=== PATIENT | female | born 1990 | race African-American/Black ===

== ENCOUNTER 2016-06-27 15:48 | Emergency (ER) | payer MEDICAID ==
[~2016-06-27] VITALS: Ht 170.2 cm; Wt 125.6 kg
[~2016-06-27 15:48] MED LIST: HYDR-4246 PO; NO ROUTINE MEDS; ONDA4TAB4 PO
[2016-06-27 15:50] VITALS: Ht 170.2 cm; Wt 125.6 kg
--- NOTE | 2016-06-27 17:05 | NUR ---
ELIMINATION PT TO BR TO VOID. UA COLLECTED AT THIS TIME
[2016-06-27] MEDS ORDERED: ACET-62 PO (17:57)
[2016-06-27] MEDS ORDERED: HYDROCODONE/APAP 5 mg/325 mg TABLET PO ONE (18:00)
[2016-06-27 18:15] LABS: BASOPHILS % (AUTO) 0.3 % (0-2); EOSINOPHILS # (AUTO) 0.2 T/MM3 (0-0.5); EOSINOPHILS % (AUTO) 1.4 % (0-4); HCT - HEMATOCRIT 41.6 % (36-46); IMMATURE GRANULOCYTE # (AUTO) 0.04 T/MM3 (0.00-0.03); IMMATURE GRANULOCYTE % (AUTO) 0.3 % (0.0-0.5); LYMPHOCYTES # (AUTO) 3.3 T/MM3 (1-4.8); LYMPHOCYTES % (AUTO) 28.1 % (23-45); MEAN CORPUSCULAR HGB 30.5 UUG (26-34); MEAN CORPUSCULAR HGB CONC(MCHC 33.7 GM/DL (31-37); MEAN CORPUSCULAR VOLUME 90.6 UM3 (80-100); MEAN PLATELET VOLUME 10.2 UM3 (9.4-12.4); MONOCYTES # (AUTO) 0.5 T/MM3 (0-0.8); MONOCYTES % (AUTO) 4.4 % (0-9.0); NEUTROPHILS #(AUTO)-ABSOLUTE 7.8 T/MM3 (1.8-7.7); NEUTROPHILS % (AUTO) 65.5 % (33-66); RED BLOOD COUNT 4.59 M/MM3 (4.00-5.20); WBC - WHITE BLOOD COUNT 11.9 T/MM3 (4.5-11.0)
[2016-06-27 18:17] LABS: BLOOD, URINE 1+ (NEGATIVE); COLOR,URINE YELLOW (YELLOW); LEUKOCYTE ESTERASE ,URINE NEGATIVE (NEGATIVE); NITRITE,URINE NEGATIVE (NEGATIVE); UROBILINOGEN,URINE 0.2 EU/DL (NORMAL)
--- NOTE | 2016-06-27 18:21 | ERPDOC ---
Departure Disposition Decision Date: Jun 27, 2016 Disposition Decision Time: 20:09 Disposition: 01 DISCHARGED HOME, SELF-CARE Impression Impression Impression: Primary Impression: Right lower quadrant abdominal pain Additional Impression: Bacterial vaginosis Severity: Moderate Condition: Stable Seen By: Mid-level only Patient Instructions: Abdominal Pain (ED), Bacterial Vaginosis (ED) Problems/Meds/Labs Reviewed?: Yes Medications reviewed and manag: Yes Additional Instructions: Take the [place] as needed for pain at home. I do want you to follow up with Dr Bowser on Thursday for follow up. Take the Flagyl as prescribed as well. This will help with the discharge. If you have any other issues/concerns then return to ER. Follow up care ordered?: Yes Mental Status: Alert Scripts Hydrocodone/Acetaminophen ([place] 5-325 Tablet) 5-325 Tablet 1 TAB PO Q6H Y for PAIN, #15 TAB 0 Refills Prov: RICARDO GARNETT BEVELLER OPERATOR 06/27/16 Metronidazole (Flagyl) 500 Mg Tablet 500 MG PO Q12HR, #14 TAB 0 Refills Take 1 tablet, by mouth, every 12 hours. Prov: RICARDO GARNETT BEVELLER OPERATOR 06/27/16 HPI - Abdominal Pain General Chief Complaint: Female Urogenital Problems Stated Complaint: PELVIC PAIN Time Seen by Provider: 17:41 Source: patient History/Exam Limitations: no limitations HPI - Abdominal Pain Initial Comments She presents to Er today for RLQ abdominal pain that started this morning. She feels like she has had pain like this off and on for the last 2 years since she had her gallbladder out. She denies any fever/chills or diarrhea. Has had some mild nausea. Was evaluated in ER a few weeks ago for this same pain. Had labs and CT of abdomen that were normal and was advised to follow up with [facility]. She did see Dr Bowser who recommended that she return to the office when her pain returns and they would get a pelvic US. She did call her office today but was unable to get in to see her. Occurred At: home Onset: Gradual Duration: other (Over the last few years off and on) Quality: sharpness Location: RLQ Radiation: no radiation Activities at Onset: none Associated Symptoms: DENIES: back pain, chest pain, diaphoresis, fatigue, fever /chills, headache, heartburn, nausea/vomiting, rash, shortness of breath, swelling/mass in abdomen, syncope, weakness Hx of Similar Symptoms: No Allergies: Coded Allergies: No Known Drug Allergies (Verified Allergy, Unknown, 05/07/16) Past History Past Medical History GI: constipation Musculoskeletal: neck pain Surgical History General: gallbladder Reproductive/: Family History Family History: Negative Vaccines Hx Influenza Vaccination: No Hx Pneumococcal Vaccination: No Social History Smoking Status: Never smoker Substance Use Type: does not use Alcohol Intake: none Sexuality: male partner Review of Systems Constitutional Constitutional: DENIES: chills, dizziness, fatigue, fever, weakness Cardiovascular Cardiac: DENIES: chest pain Rhythm/Rate: DENIES: irregular beat, palpitations Pulmonary Respiratory: DENIES: cough, dyspnea, sputum GI Upper Abdomen: DENIES: nausea, pain, vomiting Lower Abdomen: pain (RLQ), DENIES: constipation, diarrhea General: DENIES: discharge, dysuria, frequency, urgency Integumentary Skin: DENIES: rash Neurological General: DENIES: headache, numbness, tingling, weakness Physical Exam General General Nourishment: well nourished, well developed, appears stated age, no acute distress, adult, obese General Body Habitus: well groomed Vitals and Pain First Documented Vital Signs Date Time Temp Pulse Resp B/P Pulse Ox O2 Delivery O2 Flow Rate FiO2 06/27/16 15:50 98.0 94 14 130/58 94 Room Air Weight: Kilograms: 125.600 Height (feet): 5 Height (inches): 7.00 Triage Pain Scale: RN VS reviewed by Provider: Yes Normal Exams: Neck: Full range of motion, without adenopathy, JVD, bruits or thyromegaly Chest/Resp: Clear all scott, with good airflow, and symmetry bilaterally CV: Regular rate and rhythm, without murmur or gallop, Pulses 2+ all extremities, capillary refill, <2 seconds all ext., no pedal edema noted Abdomen: Bowel sounds positive, non-distended, no hepatosplenomegaly, masses or bruits noted Lymphatic: No lymphadenopathy, or lymphedema noted Integumentary: No rashes, hives, or bruising noted Neurologic: Patient is alert, and oriented Psychiatric: Patient exhibits, appropriate attention, emotion and affect Abdomen Inspection: NOT FOUND: distention Palpation: FOUND: soft, tender (TTP in the RLQ mildly with mild guarding), NOT FOUND: involuntary guarding, voluntary guarding Auscultation: FOUND: normoactive (brief) Female Brief: FOUND: tenderness (TTP mildly in the midline over the uterus and over the right adnexa. no cervical motion tenderness noted. Cervix and external genitalia does appear normal and without lesions. ), NOT FOUND: bleeding, discharge, mass Differential Diagnoses Considering: Ectopic , Ovarian Cyst, Ovarian Torsion, PID/Endometritis , Tubovarian Abscess, UTI Progress Results/Orders Orders Procedure Category Date Status Time LAB 06/27/16 Complete Qualitative, Urine 17:56 Cbc W/Auto LAB 06/27/16 Complete Diff-Reflex Manual Cmp - Comprehensive LAB 06/27/16 Complete Metabolic Gc - Chlamydia Pcr LAB 06/27/16 Complete 17:56 Hydrocodone/Acetaminophen PHA 06/27/16 Complete ([place] 5/325) 18:00 UA, LAB 06/27/16 Complete Dip&Micro(Complete) & 17:04 Microscopic Exam (Wet JAGUAR 06/27/16 In Process Prep-[place] 19:42 Genital Culture JAGUAR 06/27/16 In Process W/Gram Stain 19:42 Metronidazole (Flagyl) PHA 06/27/16 Complete 20:15 Hydrocodone/Apap PHA 06/27/16 Complete 5/325 Prepack ([place] 5 20:15 Lab Results Laboratory Tests Test 06/27/16 17:04 06/27/16 18:09 Urine Collection Type Cleancatch-midstream Urine Color Yellow Urine Turbidity Sl cloudy Urine pH 6.0 Urine Specific [place] >=1.030 Urine Protein Negative Urine Glucose (UA) Negative Urine Ketones 1+ Urine Blood 1+ Urine Nitrite Negative Urine Bilirubin Negative Urine Urobilinogen 0.2EU/DL Urine Leukocyte Esterase Negative Urine RBC 0-1/HPF Urine WBC 0-1/HPF Urine Squamous Epithelial Cells 10-20 Urine Bacteria Trace Urine Mucus Present Urine Culture Indicated Cult not indicated Urine Test Negative Chlamydia trachomatis DNA (PCR) Negative N. gonorrhoeae DNA Specimen Source Urine Neisseria gonorrhoeae DNA (PCR) Negative White Blood Count 11.9T/MM3 Red Blood Count 4.59M/MM3 Hemoglobin 14.0GM/DL Hematocrit 41.6% Mean Corpuscular Volume 90.6UM3 Mean Corpuscular Hemoglobin 30.5UUG Mean Corpuscular Hemoglobin Concent 33.7GM/DL RDW Standard Deviation 42.1FL Platelet Count 282T/MM3 Mean Platelet Volume 10.2UM3 Immature Granulocyte % (Auto) 0.3% Neutrophils (%) (Auto) 65.5% Lymphocytes (%) (Auto) 28.1% Monocytes (%) (Auto) 4.4% Eosinophils (%) (Auto) 1.4% Basophils (%) (Auto) 0.3% Absolute Immature Granulocyte (auto 0.04T/MM3 Absolute Neutrophils (auto) 7.8T/MM3 Absolute Lymphocytes (auto) 3.3T/MM3 Absolute Monocytes (auto) 0.5T/MM3 Absolute Eosinophils (auto) 0.2T/MM3 Absolute Basophils (auto) 0.0T/MM3 Turbidity < 20 Sodium Level 144MEQ/L Potassium Level 3.7MEQ/L Chloride Level 109MEQ/L Carbon Dioxide Level 24MEQ/L Anion Gap 11MEQ/L Blood Urea Nitrogen 6.0MG/DL Creatinine 0.7MG/DL Glomerular Filtration Rate Calc 102 BUN/Creatinine Ratio 9RATIO Glucose Level 85MG/DL Calculated Osmolality 274MOSM/KG Calcium Level 9.4MG/DL Total Bilirubin 0.70MG/DL Icterus Index < 2 Aspartate Amino Transf (AST/SGOT) 27U/L Alanine Aminotransferase (ALT/SGPT) 30U/L Alkaline Phosphatase 92U/L Total Protein 7.4G/DL Albumin 3.9G/DL Globulin 3.5G/DL Albumin/Globulin Ratio 1.1RATIO Chemistry Specimen Hemolysis 31 Medications Current ED Medications Acetaminophen/ Hydrocodone Bitart ([place] 5/325) 1 tab O ONCE PO Last administered on 06/27/16 18:16; Start 06/27/16 at 18:00; Stop 06/27/16 at 18:01 ; Status DC Metronidazole (Flagyl) 500 mg O ONCE PO Last administered on 06/27/16 20:32; Start 06/27/16 at 20:15; Stop 06/27/16 at 20:16; Status DC Acetaminophen/ Hydrocodone Bitart ([place] 5 (PrePack)) 1 pack O ONCE SENT HOME Last administered on 06/27/16 20:32; Start 06/27/16 at 20:15; Stop 06/27/16 at 20:16; Status DC Progress Progress WBC mildly elevated but without left shift. CMP is normal. UA is clear. GC/ chlamydia today are normal as well. Wet mount does show >20% clue cells but negative for trich. Will go ahead and treat with Flagyl. Did talk with her that given that labs look good and she has had a recent CT that was negative, will let her go home and follow up with Dr Bowser for pelvic US and follow up. RICARDO GARNETT APRN Jun 27, 2016 18:21
[2016-06-27 18:25] LABS: WBC,URINE 0-1 /HPF (0-5)
[2016-06-27 18:26] LABS: BACTERIA,URINE TRACE (NEGATIVE); MUCUS,URINE PRESENT; RBC,URINE 0-1 /HPF (0-3)
[2016-06-27 18:28] LABS: ALBUMIN 3.9 G/DL (3.5-5.0); ALBUMIN/GLOBULIN RATIO 1.1 RATIO (1.1-2.2); ALKALINE PHOSPHATASE 92 U/L (38-126); ALT (SGPT) 30 U/L (9-52); ANION GAP 11 MEQ/L (5-15); AST (SGOT) 27 U/L (14-36); BUN/CREATININE RATIO 9 RATIO (6-26); CALCIUM 9.4 MG/DL (8.4-10.2); CHLORIDE 109 MEQ/L (98-107); CO2 - CARBON DIOXIDE 24 MEQ/L (22-30); CREATININE 0.7 MG/DL (0.7-1.2); GLOMERULAR FILTRATION RATE 102; GLUCOSE 85 MG/DL (65-110); POTASSIUM 3.7 MEQ/L (3.6-5); SODIUM 144 MEQ/L (134-144); TOTAL PROTEIN 7.4 G/DL (6.3-8.2)
--- NOTE | 2016-06-27 19:38 | NUR ---
PELVIC PELVIC EXAM COMPLETE BY Everardo GARNETT APRN, RN AT BEDSIDE. PATIENT TOLERATES EXAM WELL.
[2016-06-27] MEDS ORDERED: METR500T PO (20:11)
[2016-06-27] MEDS ORDERED: HYDR-4246 PO (20:11)
[2016-06-27] MEDS ORDERED: HYDROCODONE/APAP 5/325 (PrePack) SENT HOME ONE (20:15)
[2016-06-27] MEDS ORDERED: METRONIDAZOLE 500 MG TABLET PO ONE (20:15)
[2016-06-27 20:35] VITALS: BP 125/59; PULSE 89; RESP 14; TEMP 98; O2SAT 97
== END 2016-06-27 20:35 | disposition home or self-care (01) ==
LOC: ED 15:48
DX: R10.31 Right lower quadrant pain (principal); N76.0 Acute vaginitis; B96.89 Other specified bacterial agents as the cause of diseases classified elsewhere
CPT/HCPCS: 36415; 80053; 81001; 81025; 85025; 87070; 87205; 87210; 87220; 87491; 87591

== ENCOUNTER 2017-04-10 05:33 | Inpatient (IN) ==
[2017-04-10] MEDS ORDERED: FAMOTIDINE PB 20 MG/50 ML BAG IV ONE (05:59)
[2017-04-10] MEDS ORDERED: NOZIN NASAL SWAB NAS ONE ×2 (05:59)
[2017-04-10] MEDS ORDERED: CEFAZOLIN 1 G INJECTION IVP ONE (05:59)
[2017-04-10] MEDS ORDERED: CITRIC ACID/SODIUM CITRATE 30ml PO ONE (05:59)
[2017-04-10] MEDS ORDERED: CEFAZOLIN PREMIX (MC ONLY) 2 GM/50 ML BAG IV ONE (05:59)
[2017-04-10] MEDS: LR 1,000 ML IV SCH ×2 (06:25→07:31)
[2017-04-10 06:42] VITALS: BMI 46.8
[2017-04-10] MEDS ORDERED: ONDANSETRON 4 MG/2 ML INJECTION IVP ONE (07:08)
[2017-04-10] MEDS ORDERED: EPHEDRINE 50mg/ml INJECTION IM ONE (07:08)
[2017-04-10] MEDS ORDERED: MORPHINE SULFATE PF 5mg/10ml INJ (Duramorph) EPI ONE (07:08)
[2017-04-10] MEDS ORDERED: FentaNYL 100 MCG/2 ML INJECTION IVP ONE (07:08)
[2017-04-10] MEDS ORDERED: EPHEDRINE 50mg/ml INJECTION ONE (07:10)
[2017-04-10] MEDS ORDERED: ONDANSETRON 4 MG/2 ML INJECTION ONE (07:10)
[2017-04-10] MEDS ORDERED: OXYTOCIN BOLUS BAG 30 UNIT/500 ML ML IV SCH (08:00)
[2017-04-10] MEDS ORDERED: ACETAMINOPHEN 500 MG TABLET PO PRN (08:20)
[2017-04-10] MEDS ORDERED: SIMETHICONE 80 MG CHEWABLE TABLET PO PRN (08:20)
[2017-04-10] MEDS ORDERED: HYDROCORTISONE 2.5% CREAM 30gm RECTALLY PRN (08:20)
[2017-04-10] MEDS ORDERED: DiphenhydrAMINE 25 MG CAPSULE PO PRN (08:20)
[2017-04-10] MEDS ORDERED: CALCIUM CARBONATE Chewable 500mg TABLET PO PRN (08:20)
[2017-04-10] MEDS ORDERED: OXYTOCIN DRIP 30 UNIT/500 ML ML IV SCH (08:30)
--- NOTE | 2017-04-10 08:36 | Operative Note ---
Operative Note - Date of Operation Date of Operation: 04/10/17 - General : 2 Para: 1 Estimated or Known Gestational Age (weeks): 39 Estimated or Known Gestational Age (days): 0 - Preoperative Diagnosis Previous Section, Polyhydramnios Preoperative Diagnosis: LGA BMI 47 - Postoperative Diagnosis previous section, same as preoperative - Procedure Repeat, Low-transverse - Surgeon Surgeon: Nelli Whitaker MD - Anesthesia Anesthesia Provider: Campbell Cantrell CRNA Anesthesia Type: Spinal - Complications Complications: None - Estimated Blood Loss Estimated Blood Loss:: 800 - APGARS : 8,9 - [place] Weight Weight (grams): 3934 - [place] Name [place] Name: Chong - Description of Procedure Description of Procedure: The patient was taken to the operating room where anesthesia was obtained . She was placed in the dorsal supine position with a leftward tilt. A Garcia catheter was placed . She was prepared, a Traxi abdominal retractor was placed, and then draped in the normal sterile fashion. A Pfannenstiel incision was made through her previous incision and carried down to the fascia. The fascia was incised in the midline with the scalpel and then extended laterally with the Lock scissors. The fascia was elevated, and the underlying rectus muscles were dissected off. The peritoneum was entered during this process. This was extended superiorly and inferiorly with good visualization of the bladder. The bladder blade was inserted. The bladder was low enough on the uterus that a bladder flap was not created. The lower uterine segment was incised in a transverse fashion [id number] with the scalpel and bluntly extended. The membranes were ruptured. The s head was delivered atraumatically. The nose and mouth were suctioned. The cord was clamped and cut. The infant was handed to Dr. Pelayo who was asked to attend the delivery due to polyhydramnios. The placenta delivered spontaneously. The uterus was exteriorized and cleared of all clots and debris. The uterus was closed with running, locked 0-monocryl. Hemostasis was obtained on the serosal edges with cautery. The uterus was returned to the abdomen. The gutters were cleared of all clots and debris. The uterine incision was inspected one final time and still noted to be hemostatic. The peritoneum was closed with running 2-0 vicryl. Hemostasis was obtained in the rectus muscles with the cautery. The fascia was closed with running 0-vicryl. Hemostasis was obtained in the subcutaneous tissue with the cautery. The deep tissue was closed with running 2-0 chromic. The skin was closed with drea. A Prevena wound vac was placed. Sponge, sharp, and instrument counts were correct. The patient tolerated the procedure well and was taken to the recovery room in good condition.
[2017-04-10] MEDS ORDERED: NALOXONE 2 MG/2 ML INJECTION PFS IVP PRN (08:38)
[2017-04-10] MEDS ORDERED: ONDANSETRON 4 MG/2 ML INJECTION IVP PRN (08:38)
[2017-04-10] MEDS ORDERED: DiphenhydrAMINE 50 MG/ML INJECTION IVP PRN (08:38)
--- NOTE | 2017-04-10 08:38 | Anesthesia Preoperative Report ---
Anesthesia Epidural/Spinal Rec - Date and Time Date: 04/10/17 Preoperative Diagnosis: prior Procedure: Plan: Spinal - Vital Signs Vital Signs: Temperature 98.0 F 04/10/17 06:28 Pulse Rate 101 H 04/10/17 06:28 Respiratory Rate 20 04/10/17 06:28 Blood Pressure 118/64 04/10/17 06:28 Pulse Oximetry 99 04/10/17 06:28 /Para: P:1 - Medictaions & Allergies Inpatient Medications: Current Medications Acetaminophen (Tylenol) 500 - 1,000 mg PO Q4H PRN PRN Reason: Pain Hydrocodone Bitart/Acetaminophen ([place] 5/325) 1 - 2 tab PO Q4H PRN PRN Reason: Pain Calcium Carbonate (Tums) 500 mg PO O PRN Diphenhydramine HCl (Benadryl) 25 - 50 mg PO Q6H PRN PRN Reason: Itching Docusate Calcium (Surfak) 240 mg PO DAILY [facility] Hydrocortisone (Anusol-Hc 2.5% Cream) 1 applic RECTALLY PRN PRN PRN Reason: Hemorrhoids Lactated Ringer's (Lactated Ringers) 1,000 mls @ 999 mls/hr IV .Q1H1M [facility] Last Admin: 04/10/17 07:31 Dose: 50 mls/hr Dextrose/Lactated Ringer's (Dextrose 5%-Lactated Ringers) 1,000 mls @ 100 mls/ hr IV .Q10H [facility] Oxytocin (Pitocin Drip) 30 unit in 500 mls @ 50 mls/hr IV .Q10H [facility] Stop: 04/10/17 18:29 Ibuprofen (Motrin) 800 mg PO Q8H PRN PRN Reason: Pain Isopropyl Alcohol (Nozin Nasal Swab) 1 each DAVID 0600,1400,2200 [facility] Magnesium Hydroxide (Mom) 30 ml PO HS PRN PRN Reason: Constipation Simethicone (Mylicon) 80 mg PO PCHS PRN PRN Reason: Gas Simethicone (Mylicon) 80 mg PO PCHS [facility] Allergies/Adverse Reactions: Allergies Allergy/AdvReac Type Severity Reaction Status Date / Time No Known Drug Allergies Allergy Unknown Verified 04/10/17 06:42 - Home Medications Home Medications: Home Medications Medication Instructions Recorded Confirmed Type Tums 500 mg PO PRN PRN 04/10/17 04/10/17 History - Medical History Cardiovascular: DENIES: Angina, Hypertension Gastrointestional: Reports: Gastroesophageal Reflux Disease, Morbid Obesity Renal/Endocrine: DENIES: Diabetes Mellitus Type 2 Other History: Reports: Now - Surgical History GI Surgery/Treatments: Reports: Cholecystectomy Reproductive Surgery/Treatment: Reports: Section Anesthesia Reactions: None Hx Family Anesthesia Reaction: No History of Motion Sickness: No - Social History Smoking Status: Current every day smoker Substance Use Type: marijuana (2 days ago and a few times a week) Hx Chewing Tobacco Use: No - Pertinent Findings Lab Data: CBC and BMP 04/10/17 06:18 - Physical Exam Respiratory Exam: bilateral breath sounds equal Cardiovascular Exam: regular rate and rhythm - Airway Assessment Mallampati Score: III TMD: 3 Fingerbreadths Neck Extension: good Overall Assessment: may be difficult mask vent, may be difficult intubation - ASA ASA Score: 3 - Discussion Discussion: Discussed risks/options/alternatives of anesthesia and questions answered. Patient consents. Nursing pain assessment noted. Anesthesia Discussion: spouse Attestation Statement: Prior to the delivery of any anesthetic medication, I examined the patient, developed the plan, obtained the patient's consent and discussed the risk and benefits of the procedure with the patient/guardian.
[2017-04-10] MEDS: D5LR 1,000 ML IV SCH ×2 (08:44→23:13)
[2017-04-10] MEDS: IBUPROFEN 800 MG TABLET PO PRN ×2 (09:48→19:34)
[2017-04-10] MEDS: HYDROCODONE/APAP 5mg/325mg TABLET PO PRN ×3 (09:50→21:52)
[2017-04-10] MEDS: DOCUSATE CALCIUM 240 MG CAPSULE PO SCH (14:18)
[2017-04-10] MEDS: SIMETHICONE 80 MG CHEWABLE TABLET PO SCH ×4 (14:18→23:14)
[2017-04-10] MEDS: NOZIN NASAL SWAB NAS SCH ×3 (14:20→21:46)
--- NOTE | 2017-04-10 15:15 | Anesthesia Postoperative Note ---
- Date and Time Date: 04/10/17 Time: 15:12 - Status Patient Participated in Evaluation: Patient Participated in Person Vital Signs: Temperature 98.0 F 04/10/17 06:28 Pulse Rate 101 H 04/10/17 06:28 Respiratory Rate 20 04/10/17 06:28 Blood Pressure 118/64 04/10/17 06:28 Pulse Oximetry 99 04/10/17 06:28 Respiratory Function: Airway Patent, Regular Respirations Cardiovascular Function: Regular Pulse Mental Status: Alert and Oriented Pain Intensity: 5 Hydration: Taking PO Fluids Complications During Recover: None Apparent Post Anesthesia Care Notes: patient moves lower extremeties without problems. - Follow-Up Instructions Instructions: Per Surgeon
--- NOTE | 2017-04-10 17:06 | OB/GYN Progress Note ---
OB-PP Progress Note - General POD:: Post Op Check Maternal Group B Strep: Negative Maternal blood type: O+ Maternal Rubella Status: Immune - Subjective Date: 04/10/17 Lochia: Minimal Pain: controlled Voiding: rebollar still in place - Objective Vital Signs: Last Vital Signs Temp 97.4 F 04/10/17 16:01 Pulse 62 04/10/17 16:01 Resp 16 04/10/17 16:01 BP 117/71 04/10/17 16:01 Pulse Ox 100 04/10/17 16:01 Urine Output: good General: alert and oriented Laboratory: Laboratory Results - last 24 hr 04/10/17 04/10/17 04/10/17 06:18 06:18 14:08 WBC 14.4 H 17.6 H RBC 4.09 3.77 L Hgb 12.1 11.3 L Hct 36.5 33.5 L MCV 89.2 88.9 MCH 29.6 30.0 MCHC 33.2 33.7 RDW Std Deviation 44.6 43.5 Plt Count 318 290 MPV 9.0 L 9.0 L Immature Gran % (Auto) 0.5 Neut % (Auto) 63.2 Lymph % (Auto) 29.9 Keith % (Auto) 5.5 Eos % (Auto) 0.6 Baso % (Auto) 0.3 Neut # (Auto) 9.1 H Lymph # (Auto) 4.3 Keith # (Auto) 0.8 Eos # (Auto) 0.1 Baso # (Auto) 0.1 Abs Immat Gran (auto) 0.07 H Blood Type O Positive Antibody Screen Negative - Assessment Assessment: Repeat C/S - Plan Plan: routine care
[2017-04-11] MEDS: HYDROCODONE/APAP 5mg/325mg TABLET PO PRN ×5 (03:41→22:02)
[2017-04-11] MEDS: IBUPROFEN 800 MG TABLET PO PRN ×3 (03:41→22:01)
[2017-04-11] MEDS: DOCUSATE CALCIUM 240 MG CAPSULE PO SCH (08:34)
[2017-04-11] MEDS: SIMETHICONE 80 MG CHEWABLE TABLET PO SCH ×3 (08:35→22:01)
--- NOTE | 2017-04-11 09:40 | OB/GYN Progress Note ---
OB-PP Progress Note - General PPD1 Maternal Group B Strep: Negative Maternal blood type: O+ Maternal Rubella Status: Immune - Subjective Date: 04/11/17 Lochia: Minimal Pain: controlled Voiding: voiding - Objective Vital Signs: Last Vital Signs Temp 97.3 F 04/11/17 04:01 Pulse 87 04/11/17 04:01 Resp 20 04/11/17 04:01 BP 103/54 04/11/17 04:01 Pulse Ox 100 04/11/17 04:01 Urine Output: good General: alert and oriented Abdomen: fundus firm, non-tender Incision: other (Wound vac in place) Extremities: non-tender Laboratory: Laboratory Results - last 24 hr 04/10/17 14:08 WBC 17.6 H RBC 3.77 L Hgb 11.3 L Hct 33.5 L MCV 88.9 MCH 30.0 MCHC 33.7 RDW Std Deviation 43.5 Plt Count 290 MPV 9.0 L - Assessment Assessment: Repeat C/S - Plan Plan: routine care Expected date of discharge: 04/12/17
[2017-04-11] MEDS: NOZIN NASAL SWAB NAS SCH ×2 (12:03→22:01)
[2017-04-11 13:13] VITALS: RESP 18
[2017-04-12] MEDS: HYDROCODONE/APAP 5mg/325mg TABLET PO PRN ×2 (03:50→09:04)
[2017-04-12] MEDS: NOZIN NASAL SWAB NAS SCH (06:50)
--- NOTE | 2017-04-12 07:59 | OB/GYN Progress Note ---
OB-PP Progress Note - General PPD2 Maternal Group B Strep: Negative Maternal blood type: O+ Maternal Rubella Status: Immune - Subjective Date: 04/12/17 Lochia: Minimal Pain: controlled Voiding: voiding - Objective Vital Signs: Last Vital Signs Temp 97.8 F 04/12/17 01:00 Pulse 80 04/12/17 01:00 Resp 18 04/12/17 01:00 BP 113/68 04/12/17 01:00 Pulse Ox 99 04/11/17 16:50 General: alert and oriented Abdomen: fundus firm, non-tender Incision: other (Wound vac in place) Extremities: non-tender - Assessment Assessment: Repeat C/S - Plan Plan: routine care, discharge home, continue PNV
[2017-04-12 08:16] VITALS: BP 112/67; PULSE 82; TEMP 97.3; O2SAT 100
[2017-04-12] MEDS: SIMETHICONE 80 MG CHEWABLE TABLET PO SCH (09:04)
[2017-04-12] MEDS: IBUPROFEN 800 MG TABLET PO PRN (09:04)
[2017-04-12] MEDS: DOCUSATE CALCIUM 240 MG CAPSULE PO SCH (09:05)
== END 2017-04-12 11:40 | disposition home or self-care (01) | DRG 765 ==
LOC: MC 05:33
PROVIDERS: ADMIT Obstetrics & Gynecology; ATTEND Obstetrics & Gynecology